=== PATIENT | female | born 1965 | race Two or more races ===

== ENCOUNTER 2024-02-04 20:21 | Emergency (ER) | payer OTHER ==
[~2024-02-04] VITALS: Ht 160 cm; Wt 87.5 kg
[2024-02-04 21:06] VITALS: BP 150/89; TEMP 98.6; O2SAT 99
== END 2024-02-04 21:06 | disposition home or self-care (01) ==
LOC: ER 20:22
DX: T23.102A Burn of first degree of left hand, unspecified site, initial encounter (principal); E11.9 Type 2 diabetes mellitus without complications; Z90.49 Acquired absence of other specified parts of digestive tract; Y92.89 Other specified places as the place of occurrence of the external cause
CPT/HCPCS: A4606; A4663